=== PATIENT | female | born 1970 | race Caucasian/White ===

== ENCOUNTER 2020-03-27 09:25 | Observation (INO) ==
[2020-03-27] MEDS ORDERED: MoRPHine SULFATE 4 MG/ML 1 ML CARP\\VIAL IV STA (09:33)
[2020-03-27 09:47] LABS: Basophils # (auto) 0.02 K/uL (0-0.2); Basophils % (auto) 0.2 %; Eosinophils # (auto) 0.24 K/uL (0-0.5); Eosinophils % (auto) 2.6 %; Hematocrit (blood only) 37.5 % (37-47); Hemoglobin 12.5 g/dL (12.0-16.0); Immature Granulocytes # (auto) 0.03 K/uL (0.00-0.02); Immature Granulocytes % (auto) 0.3 %; Lymphocytes # (auto) 2.67 K/uL (1.2-3.4); Lymphocytes % (auto) 29.1 %; Mean Corpuscular Hemoglobin 31.9 pg (25-34); Mean Corpuscular Hgb Conc 33.3 g/dL (32-36); Mean Corpuscular Volume 95.7 fL (80-100); Mean Platelet Volume 9.8 fL (7.4-10.4); Monocytes # (auto) 0.81 K/uL (0.11-0.59); Monocytes % (auto) 8.8 %; Neutrophils # (auto) 5.41 K/uL (1.4-6.5); Platelet Count 290 K/uL (130-400); RDW Coefficient of Variation 13.6 % (11.5-14.5); Red Blood Count 3.92 M/uL (4.2-5.4); White Blood Count 9.18 K/uL (4.8-10.8)
--- NOTE | 2020-03-27 09:56 | XRay Report ---
XR tibia fibula LT 2V CLINICAL HISTORY: Acute fracture COMPARISON: None. DISCUSSION: No acute fractures of the proximal tibia or fibula are visualized. There is an oblique fr acture of the distal fibula. There is a fracture the posterior malleolus of the distal tibia. There i s disruption of the ankle mortise with posterior displacement of the talus with respect to the tibia. IMPRESSION: 1. Acute fractures of the distal fibula and posterior malleolus. 2. Tibiotalar subluxation. ACT 112: Negative or not required by law. Electronically signed by: Rod Rosado M.D. 03/27/2020 9:55 AM
--- NOTE | 2020-03-27 09:58 | XRay Report ---
XR ankle LT min 3V routine CLINICAL HISTORY: Open fracture. COMPARISON: None. DISCUSSION: There is gas within soft tissues consistent with a open fracture. There is a chip/avulsio n fracture the medial malleolus. There is a distal fibular fracture. There is a fracture of the poste rior malleolus of the distal tibia. There is a tibiotalar subluxation. IMPRESSION: 1. Trimalleolar fracture subluxation. 2. Gas within the soft tissues suggesting an open fracture. ACT 112: Negative or not required by law. Electronically signed by: Rod Rosado M.D. 03/27/2020 9:56 AM
[2020-03-27 10:02] LABS: BUN Creatinine Ratio 15.5 (10-20); Calcium 8.2 mg/dl (8.5-10.1); Creatinine Clr Calc Pharmacy 97.6 ml/min; Est GFR (African American) 98.8; Est GFR (Non-African American) 85.3; Potassium 3.4 mmol/L (3.5-5.1)
--- NOTE | 2020-03-27 10:08 | Emergency Department Note ---
History of Present Illness General Chief complaint: Ankle Pain Time Seen by Provider: 03/27/20 09:33 Source: patient Mode of arrival: ambulatory Limitations: no limitations History of Present Illness Provider Complaint: + extremity pain HPI Narrative: This is a 49-year-old female who presents to the ED with a chief complaint of a left distal leg injury. The patient states that she was getting out of her car to go eat at a local restaurant when she slipped and injured her left foot. She was transported to the ED by EMS. EMS gave the patient some IV fentanyl as well as 2 g of IV Ancef. They transported the patient here. The patient complains of left distal leg pain where there is also a large laceration on the medial aspect of the leg. Pain is worse with movement. Denies other symptoms at this time. Denies other injuries. Did not strike her head or lose consciousness. Home Medications Medication Instructions Recorded Confirmed Type No Known Home Medications 03/27/20 03/27/20 History Allergies Allergy/AdvReac Type Severity Reaction Status Date / Time No Known Allergies Allergy Unverified 03/27/20 10:06 Past Med/Surg History Social History Smoking Status: Never smoker Preferred Language: Kazakh Feels Safe at Home: Yes Review of Systems A total of 10 systems reviewed and were otherwise negative Physical Exam Vital Signs: Vital Signs - 24 hr 03/27/20 09:19 03/27/20 09:59 03/27/20 10:00 Temperature 37.1 C Temperature Source Oral Pulse Rate 51 L 59 L 48 L Pulse Rate from Sp O2 Sensor 59 L 56 L Respiratory Rate 17 18 16 Respiratory Effort / Characteristics Non-Labored Sponta neous Respiratory Depth Normal Respiratory Patter n Regular Blood Pressure 105/47 L 114/79 109/76 Blood Pressure Adrienne n 66 90 87 Blood Pressure Pos ition Lying Pulse Oximetry 98 96 94 Oxygen Delivery Me thod Room Air Sepsis Recent Feve r Within 48 Hours No Sepsis New/Unexpla ined Change in Men yuniel Status N/A Sepsis Action Take n by Nursing No Action Required 03/27/20 10:30 Temperature Temperature Source Pulse Rate 72 Pulse Rate from Sp O2 Sensor 72 Respiratory Rate 16 Respiratory Effort / Characteristics Respiratory Depth Respiratory Patter n Blood Pressure 131/88 Blood Pressure Adrienne n 102 Blood Pressure Pos ition Pulse Oximetry 98 Oxygen Delivery Me thod Sepsis Recent Feve r Within 48 Hours Sepsis New/Unexpla ined Change in Men yuniel Status Sepsis Action Take n by Nursing Physical Exam: CONSTITUTIONAL/VITAL SIGNS: Reviewed / noted above. GENERAL: Non-toxic in appearance. INTEGUMENTARY: Warm, dry, and [place]. HEAD: Normocephalic. EYES: without scleral icterus or trauma. ENT/OROPHARYNX: clear and moist. LYMPHADENOPATHY/NECK: Is supple without lymphadenopathy or meningismus. RESPIRATORY: Lungs clear and equal. CARDIOVASCULAR: Regular rate and rhythm. GI/ABDOMEN: Soft and nontender. No organomegaly or pulsatile mass. No rebound or guarding. Normal bowel sounds. EXTREMITIES: Warm and well perfused. Left leg reveals a 3 inch horizontal l aceration on the medial aspect just above the medial malleolus. Patient has significant tenderness in that area. There is also tissue swelling. BACK: No CVA tenderness. NEUROLOGICAL: Intact without focal deficits. PSYCHIATRIC: normal affect. MUSCULOSKELETAL: Normally developed with good muscle tone. TRIAGE NURSING DOCUMENTATION REVIEWED. Course Administered Medications Discontinued Medications Morphine Sulfate (Morphine Sulfate 4 Mg/Ml 1 Ml Carp\Vial) 4 mg IV NOW STA Stop: 03/27/20 09:34 Last Admin: 03/27/20 09:41 Dose: 4 mg Documented by: [id number] Medical Decision Making Differential Diagnosis Fracture, subluxation, dislocation, contusion, ligamentous injury, neurovascular, compartment syndrome, rhabdomyolysis, as well as other pathologies. Medical Records Attestation: I reviewed the patient's medical records. Home Medications Current Medication List: was personally reviewed by me Laboratory Data Attestation: I reviewed the patient's lab results. Result diagrams: 03/27/20 09:36 03/27/20 09:36 Lab Results 03/27/20 03/27/20 Range/Units 09:36 09:36 WBC 9.18 (4.8-10.8) K/uL RBC 3.92 L (4.2-5.4) M/uL Hgb 12.5 (12.0-16.0) g/dL Hct 37.5 (37-47) % MCV 95.7 (80-100) fL MCH 31.9 (25-34) pg MCHC 33.3 (32-36) g/dL RDW Std Deviation 47.0 H (36.4-46.3) fL RDW Coeff of Jessica 13.6 (11.5-14.5) % Plt Count 290 (130-400) K/uL MPV 9.8 (7.4-10.4) fL Immature Gran % (Auto) 0.3 % Neut % (Auto) 59.0 % Lymph % (Auto) 29.1 % [place] % (Auto) 8.8 % Eos % (Auto) 2.6 % Baso % (Auto) 0.2 % Neut # (Auto) 5.41 (1.4-6.5) K/uL Lymph # (Auto) 2.67 (1.2-3.4) K/uL [place] # (Auto) 0.81 H (0.11-0.59) K/uL Eos # (Auto) 0.24 (0-0.5) K/uL Baso # (Auto) 0.02 (0-0.2) K/uL Immature Gran # (Auto) 0.03 H (0.00-0.02) K/uL Sodium 143 (136-145) mmol/L Potassium 3.4 L (3.5-5.1) mmol/L Chloride 110 H (98-107) mmol/L Carbon Dioxide 26 (21-32) mmol/L Anion Gap 7.0 (3-11) BUN 13 (7-18) mg/dl Creatinine 0.81 (0.6-1.2) mg/dl Est Cr Clr Drug Dosing 97.6 ml/min Est GFR ( Amer) 98.8 Est GFR (Non-Af Amer) 85.3 BUN/Creatinine Ratio 15.5 (10-20) Glucose 113 H (70-99) mg/dl Calcium 8.2 L (8.5-10.1) mg/dl Imaging Data Radiologist's Impression: XR tibia fibula LT 2V CLINICAL HISTORY: Acute fracture COMPARISON: None. DISCUSSION: No acute fractures of the proximal tibia or fibula are visualized. There is an oblique fracture of the distal fibula. There is a fracture the posterior malleolus of the distal tibia. There is disruption of the ankle mortise with posterior displacement of the talus with respect to the tibia. IMPRESSION: 1. Acute fractures of the distal fibula and posterior malleolus. 2. Tibiotalar subluxation. MDM Narrative Patient presents with a left ankle injury. She has acute fractures that are open of the distal fibula and posterior malleolus as well as tibiotalar subluxation. She was given IV Ancef by EMS. She was given IV morphine here. The patient last ate last night. She did not eat or drink this morning. Orthopedics, Dr. Sales, has been consulted to see the patient. The patient has blood work was normal. Dr. Sales did ask if I could try to reduce the patient subluxation. The patient did receive IV morphine here. I did attempt to reduction but there was no clear reduction felt although there was some movement of the foot on the ankle. Sterile moist dressings were placed over the patient's wound. Impression & Plan Ankle fracture Discharge Plan Visit Data Chief Complaint: Ankle Pain ED Provider: Ed Hicks Discharge Problem: Ankle fracture Patient Disposition: Being Evaluated by Surgeon Forms Stand Alone Forms: [facility] [employer] Prescriptions Prescriptions: No Action No Known Home Medications RF: 0 Referrals Referrals: PCP,NO [Primary Care Provider] - Discharge Problem: Ankle fracture Qualifiers: Encounter type: initial encounter Fracture type: open Open fracture type: open type I or II Laterality: left Qualified Code(s): S82.892B - Other fracture of left lower leg, initial encounter for open fracture type I or II
[2020-03-27] MEDS ORDERED: MIDAZOLAM HCL 1 MG/ML 2ML VIAL ONE (11:22)
[2020-03-27] MEDS ORDERED: fentaNYL citrate 100 MCG/2 ML VIAL ONE (11:22)
[2020-03-27 11:44] LABS: Pregnancy Test, Serum Negative (Negative)
--- NOTE | 2020-03-27 12:20 | Anesthesiology Consultation ---
Date of Service March 27, 2020 Assessment & Plan (1) Encounter for pre-operative examination: Chart Review Chart Review: Acceptable Risk for Surgery History Surgery Operation Date: 03/27/20 12:15 Proposed Procedures p Open Reduction Internal Fixation Ankle - Danilo Sales DO Height/Weight Height: 5 ft 5 in Weight: 98.4 kg Allergies Allergy/AdvReac Type Severity Reaction Status Date / Time No Known Allergies Allergy Unverified 03/27/20 10:06 Medications Home Medications Medication Instructions Recorded Confirmed Last Taken No Known Home Medications 03/27/20 03/27/20 Unknown NPO Date Last Intake of Fluids: 03/26/20 Time Last Intake of Fluids: 18:00 Date Last Intake of Solids: 03/26/20 Time Last Intake of Solids: 18:00 Past Medical History Medical History (Updated 03/27/20 @ 12:19 by Jose Aguirre MD) Obesity Past Surgical History Surgical History (Updated 03/27/20 @ 12:19 by Jose Aguirre MD) No significant past surgical history Social History Smoking Status: Never smoker Physical Exam Vital Signs Last Vital Signs Temp 37.1 C 03/27/20 09:19 Pulse 72 03/27/20 10:30 Resp 16 03/27/20 10:30 BP 131/88 03/27/20 10:30 Pulse Ox 98 03/27/20 10:30 Testing Laboratory Results 03/27/20 09:36 03/27/20 09:36
[2020-03-27] MEDS ORDERED: ROPIVACAINE 0.5% 5 MG/ML 30 ML VIAL ONE (12:31)
[2020-03-27] MEDS ORDERED: SODIUM CHLORIDE 0.9% INJ 10 ML VIAL ONE (12:31)
[2020-03-27] MEDS ORDERED: PROMETHAZINE HCL 12.5 MG in SODIUM CHLORIDE 0.9% 50 ML IV PRN (12:33)
[2020-03-27] MEDS ORDERED: LABETALOL HCL IV 5 MG/ML 20ML IV PRN (12:33)
[2020-03-27] MEDS ORDERED: HYDROmorphone INJ 1 MG/ML SYRINGE IV PRN (12:33)
[2020-03-27] MEDS ORDERED: ONDANSETRON INJ 2 MG/ML 2 ML VIAL IV PRN ×2 (12:33→16:31)
[2020-03-27] MEDS ORDERED: ATROPINE SULFATE 0.1 MG/ML 10ML SYR IV PRN (12:33)
[2020-03-27] MEDS ORDERED: KETOROLAC 30 MG/ML VIAL IV PRN (12:33)
--- NOTE | 2020-03-27 12:47 | History & Physical Bridge Note ---
Date of Service March 27, 2020 History & Physical Bridge Note I have examined the patient, reviewed the History & Physical and in the interval since the performance of the History & Physical I have noted the following changes of clinical significance: We will require open reduction internal fixation open and displaced left ankle trimalleolar fracture dislocation with irrigation debridement open fracture left ankle.
[2020-03-27 12:54] LABS: Pregnancy Test, Urine Negative (Negative)
--- NOTE | 2020-03-27 13:11 | History & Physical Report ---
Date of Service March 27, 2020 Assessment & Plan (1) Ankle fracture: Patient has sustained an open ankle fracture and dislocation. Treatment options discussed. Images reviewed with Dr. Sales. Patient will require I&D of open fracture and ORIF. All potential risks, benefits, and alternatives to surgery discussed with patient by Dr. Sales and she wishes to proceed. All questions answered. Will plan on surgical treatment today. Encounter type: initial encounter Fracture type: open Laterality: left Open fracture type: open type I or II Qualified Code(s): S82.892B - Other fracture of left lower leg, initial encounter for open fracture type I or II History of Present Illness Chief Complaint: Left ankle injury Primary Care Provider: NO PCP 49 year old female with no significant past medical history presented to ED by ambulance this morning. She was getting out of her car and slipped twisting her ankle. She has sustained an open ankle fracture/dislocation. She is being brought to the OR for definitive treatment. Patient denies headaches, sweats, fevers, chills, double vision, blurred vision, cough, sore throat, dysphagia, chest pain, sob, wheezing, n/v/d/c, numbness, tingling, fatigue, urinary symptoms, mood disorders. ROS positive for left ankle pain. Allergies Allergy/AdvReac Type Severity Reaction Status Date / Time No Known Allergies Allergy Unverified 03/27/20 10:06 Home Medications Medication Instructions Recorded Confirmed Type No Known Home Medications 03/27/20 03/27/20 History Past Med/Surg History Medical History (Updated 03/27/20 @ 12:19 by Jose Aguirre MD) Obesity Surgical History (Updated 03/27/20 @ 12:19 by Jose Aguirre MD) No significant past surgical history Social History Smoking Status: Never smoker Preferred Language: German Feels Safe at Home: Yes Physical Exam Constitutional: well developed and well nourished; no acute distress Eyes: PERRL, conjunctivae normal, anicteric sclerae ENMT: external ear and nose normal, oropharynx normal Neck: normal visual inspection Respiratory: normal respiratory effort; no respiratory distress Cardiovascular: Rate/Rhythm: regular rate and regular rhythm Musculoskeletal: Left ankle is externally rotated. She has at lease a 6cm laceration medial aspect of ankle. Tenderness diffusely about the ankle. Toes are mobile and cap refill <3s. She has sensation distally. Dorsal pedal pulse palpable. N/v status intact. Skin: no rashes, warm and dry Neurologic: normal touch/pain/proprioception Psychiatric: A+Ox3, euthymic affect Results & Data ([facility]) Vital Signs (Past 12 Hours) Vital Signs Temp Pulse Resp BP Pulse Ox 03/27/20 12:30 78 15 121/84 96 03/27/20 11:30 74 23 129/86 97 03/27/20 11:00 75 18 129/88 97 03/27/20 10:30 72 16 131/88 98 03/27/20 10:00 48 L 16 109/76 94 03/27/20 09:59 59 L 18 114/79 96 03/27/20 09:19 37.1 C 51 L 17 105/47 L 98 Diagnostic Findings XR ankle LT min 3V routine CLINICAL HISTORY: Open fracture. COMPARISON: None. DISCUSSION: There is gas within soft tissues consistent with a open fracture. There is a chip/avulsion fracture the medial malleolus. There is a distal fibular fracture. There is a fracture of the posterior malleolus of the distal tibia. There is a tibiotalar subluxation. IMPRESSION: 1. Trimalleolar fracture subluxation. 2. Gas within the soft tissues suggesting an open fracture.
[2020-03-27] MEDS ORDERED: ONDANSETRON INJ 2 MG/ML 2 ML VIAL ONE (13:46)
[2020-03-27] MEDS ORDERED: PROPOFOL IV EMULSION 10 MG/ML 20 ML VIAL IV ONE (13:46)
[2020-03-27] MEDS ORDERED: LIDOCAINE HCL 2% 2 ML VIAL/AMP(20MG/ML) INFIL ONE (13:46)
[2020-03-27] MEDS ORDERED: ROCURONIUM BROMIDE 10 MG/ML 5 ML VIAL IV ONE (13:46)
[2020-03-27] MEDS ORDERED: LARYING-O-JET KIT (LTA) ONE (13:46)
[2020-03-27] MEDS ORDERED: DEXAMETHASONE SOD INJ 4 MG/ML VIAL ONE (13:46)
[2020-03-27] MEDS ORDERED: BACITRACIN INJ 50,000 UNIT VIAL ONE (13:57)
--- NOTE | 2020-03-27 15:21 | Fluoroscopy Report ---
FL ankle LT min 3V RTN CLINICAL HISTORY: ORIF LEFT ANKLE COMPARISON STUDY: March 27, 2020 FLUOROSCOPY TIME: 72 seconds. NUMBER OF FLUOROSCOPIC IMAGES: 2 FINDINGS: 2 intraoperative fluoroscopic spot images are provided for interpretation. There are 2 kevin ulated screws traversing a fracture of the posterior malleolus of the distal tibia. There is a latera l metallic plate fixating a distal humeral fracture. The ankle mortise appears intact. There is a chi p/avulsion fracture the medial malleolus. IMPRESSION: Internally fixated fractures of the distal tibia and fibula. ACT 112: Negative or not required by law. Electronically signed by: Rod Rosado M.D. 03/27/2020 3:20 PM
[2020-03-27] MEDS ORDERED: METOCLOPRAMIDE HCL INJ 5 MG/ML 2 ML VIAL ONE (15:35)
--- NOTE | 2020-03-27 15:38 | Post Operative Brief Note ---
Immediate Post Op Note v1 Date of Surgery March 27, 2020 Pre & Post Diagnosis Operation Date: 03/27/20 12:15 Pre-Op Diagnosis: Acute open trimalleolar fracture dislocation left tibia and fibula. 8 cm open fracture laceration medial ankle Post-Op Diagnosis: Acute open trimalleolar fracture dislocation left tibia and fibula. 8 cm open fracture laceration medial ankle I identified the patient and participated in the time-out.: Yes Procedure Operation Date: 03/27/20 12:15 Actual Procedures p 1. Open reduction internal fixation open and displaced left ankle trimalleolar fracture dislocation. 2. Irrigation and debridement open fracture dislocation left ankle. 3. Irrigation, debridement and closure 8 cm open fracture laceration medial ankle 4. Fluoroscopic stress views left ankle. (Left) - Danilo Sales DO Surgeon Danilo Sales DO Sewer Line Repairer Chet Andrade PA-C Estimated Blood Loss 10 Findings Consistent with Post-Op Diagnosis Specimens None Anesthesia Type General Regional Complications none Disposition Accompanied Patient To Recovery: No Disposition: Recovery Room
--- NOTE | 2020-03-27 16:19 | Anesthesiology Progress Note ---
Date of Service March 27, 2020 Anesthesia Post Procedure Vital Signs Vital Signs: Temp Pulse Pulse Resp BP BP Pulse Ox 03/27/20 16:10 91 H 20 133/74 94 03/27/20 16:00 80 17 120/81 95 03/27/20 15:50 82 17 126/78 100 03/27/20 15:41 36.4 C L 88 16 118/73 100 03/27/20 12:30 78 15 121/84 96 03/27/20 11:30 74 23 129/86 97 03/27/20 11:00 75 18 129/88 97 03/27/20 10:30 72 16 131/88 98 03/27/20 10:00 48 L 16 109/76 94 03/27/20 09:59 59 L 18 114/79 96 03/27/20 09:19 37.1 C 51 L 17 105/47 L 98 Transfer of Care Handoff Completed per policy Notes Mental Status: alert / awake / arousable Patient Amnestic to Procedure: Yes Nausea / Vomiting: adequately controlled Pain: adequately controlled Airway Patency, RR, SpO2: stable & adequate BP & HR: stable & adequate Hydration State: stable & adequate Anesthetic Complications: no major complications apparent
[2020-03-27] MEDS ORDERED: bisacodyL 10 MG SUPP PR PRN (16:31)
[2020-03-27] MEDS ORDERED: MAGNESIUM HYDROXIDE SUSP 30 ML UDC PO PRN (16:31)
[2020-03-27] MEDS ORDERED: oxyCODONE HCL IR 5 MG TAB (IMMEDIATE RELEASE) PO PRN (16:31)
[2020-03-27] MEDS ORDERED: METOCLOPRAMIDE HCL INJ 5 MG/ML 2 ML VIAL IV PRN (16:31)
[2020-03-27] MEDS ORDERED: HYDROmorphone INJ 0.5 MG/0.5 ML SYR IV PRN (16:31)
[2020-03-27] MEDS ORDERED: NALOXONE HCL 0.4 MG/1 ML VIAL/CARP IV PRN (16:31)
[2020-03-27] MEDS: SODIUM CHLORIDE 0.9% 1000ML 1,000 ML IV SCH (17:43)
[2020-03-27] MEDS: ceFAZolin 2000MG 2,000 MG/15 ML SYR IV SCH (19:56)
--- NOTE | 2020-03-27 20:00 | Operative Report (OR) ---
DATE OF OPERATION: 03/27/2020 PREOPERATIVE DIAGNOSES: 1. Left acute open trimalleolar fracture dislocation of the tibia and fibula. 2. An 8 cm open fracture laceration, medial ankle. POSTOPERATIVE DIAGNOSES: 1. Left acute open trimalleolar fracture dislocation of the tibia and fibula. 2. An 8 cm open fracture laceration, medial ankle. PROCEDURES PERFORMED: 1. Open reduction and internal fixation of open and displaced left ankle trimalleolar fracture dislocation. 2. Irrigation and debridement of open fracture dislocation, left ankle. 3. Irrigation and debridement with closure of an 8 cm open fracture laceration, medial ankle. 4. Fluoroscopic stress views of the left ankle. SURGEON: Danilo Sales DO. HANDSTITCHING MACHINE ARMHOLE FELLER: Chet Andrade PA-C who was present for patient positioning, sterile prep and drape, management of retractors and instruments. He was present through the critical portions of the case including wound closure, application of sterile dressing and transport of the patient to recovery. ANESTHESIA: General, regional. SPECIMENS: None. DRAINS: None. COMPLICATIONS: None. BLOOD LOSS: 10 mL. PERTINENT HISTORY: This is a 49-year-old woman who is visiting her daughters at [facility]. She had a twisting injury to her left ankle. She had severe pain and inability to ambulate with an obvious large fracture laceration of the medial ankle with bone protruding from the ankle. She was transported to [facility] where she was evaluated and treated by the ER staff noting open fracture dislocation of the left ankle. The patient had irrigation, IV antibiotics and was immobilized and then orthopedics was consulted. The patient was seen and examined and then scheduled for surgery immediately as indicated. All potential risks, benefits, complications, alternatives, rehab potential for incomplete relief of symptoms, need for further surgery, DVT, PE, , persistent pain, swelling, scarring, weakness, neurovascular injury, wound complications, hardware failure, nonunion, malunion, bone fracture, osteomyelitis and other complications related to the open fracture were discussed with the patient. The patient decided to proceed with the procedure as indicated. She understands the higher risk of any procedures performed on the ankle due to the open fracture. DESCRIPTION OF PROCEDURE: The patient received regional anesthetic performed by the anesthesiologist and taken to the operative suite, placed supine on the operating room table. After review of consent and identification of proper operative site, the patient was anesthetized, LMA was placed. Tourniquet was placed high on left thigh over cast padding. Left lower extremity was then sterilely prepped and draped in usual fashion, elevated and tourniquet inflated to 350 mmHg. There was no exsanguination performed. Next, the surgical timeout was performed and the medial 8 cm fracture laceration was then explored and Franco rakes were applied. Devitalized periosteal tissue was then sharply excised with a 15 blade scalpel and Metzenbaum scissors. Macerated subcutaneous tissue was sharply excised with Metzenbaum scissors and forceps. Next, after all obviously devitalized tissue was then sharply excised, the posterior tibial tendon was clearly visualized as well as the open bone fracture. There is a small avulsion fracture lodged within the medial deltoid. Decision was made to maintain this in place, therefore, to avoid disturbing any more of the soft tissue due to trauma as was possible. Next, 6 liters of sterile saline with bacitracin was then used to cleanse the laceration with pulsatile lavage until clear. Once this was completed, new top gloves and top sheet were then applied and attention was then directed toward the fracture dislocation. Dislocation was then gently reduced with gentle traction under live fluoroscopic assistance. After this was completed, next, a 15 blade scalpel was used to make an incision centered over the lateral malleolus extending proximally. The incision was deepened through the skin and subcutaneous tissue with a 15 blade scalpel. Franco rakes were applied to retract soft tissue carefully and then the torn periosteum and fracture were clearly identified. Careful dissection was performed with a 15 blade scalpel and forceps to elevate the periosteum from within the fracture site. The torn periosteum was sharply excised in a judicious fashion. Next, a minimalist elevation of periosteum was performed with a 15 blade scalpel and then after irrigation with sterile saline and debridement with a small dental pick to remove clot, the fracture was then reduced in an anatomic reduction with 2 lion-jaw forceps. A single 3.5 mm anterior to posterior lag screw was placed under live fluoroscopic assistance followed by use of a contoured Synthes 1/3 tubular locking plate, which was then firmly affixed to the lateral malleolus using multiple locking bone screws. Next, 2 small stab incisions were made in the distal anterior aspect of the tibia and two 4-0 cannulated screws were placed under live fluoroscopic assistance with the foot held in full dorsiflexion to capture the posterior malleolar fragment. Once the fragment was then firmly stabilized, the guide pins were removed and stress views were then performed of the ankle joint under live fluoroscopic assistance, multiple views, noting stable ankle joint mortise. Decision was made to avoid use of a syndesmotic screw based upon stress views. Next, the surgical incision and the open fracture laceration of the medial ankle was then irrigated once again with sterile saline with bacitracin and then the lateral deep soft tissue was closed using 2-0 Vicryl over the plate. Next, the dermis was closed using buried interrupted 3-0 Vicryl, skin was closed with 4-0 nylon. The anterior stab incisions were closed using 4-0 nylon and then the deep periosteal tear was then closed with interrupted 2-0 Vicryl sutures using few sutures followed by gentle reapproximation of the dermis with buried interrupted 3-0 Vicryl and then the skin was closed using 4-0 nylon. After final radiographs have been performed, a sterile compressive dressing and bulky Donis Bowens plaster splint was applied overwrapped with an Merritt wrap with the foot held in neutral dorsiflexion. Tourniquet was released. Normal hyperemic response returned to the toes. The patient was awakened and taken to recovery in stable condition. I attest to the content of the Intraoperative Record and any orders documented therein. Any exception s are noted below.
[2020-03-27] MEDS: DOCUSATE SODIUM 100 MG CAP PO SCH ×2 (20:06→20:07)
[2020-03-27] MEDS: ASPIRIN 81 MG ECTAB PO SCH (20:06)
[2020-03-27] MEDS ORDERED: SENNA 8.6 MG TAB PO SCH (21:00)
[2020-03-27] MEDS: ACETAMINOPHEN 500 MG TAB PO SCH (21:19)
[2020-03-28] MEDS: ceFAZolin 2000MG 2,000 MG/15 ML SYR IV SCH ×2 (03:28→12:19)
[2020-03-28] MEDS: SODIUM CHLORIDE 0.9% 1000ML 1,000 ML IV SCH (03:38)
[2020-03-28 05:40] LABS: Hematocrit (blood only) 36.4 % (37-47); Hemoglobin 12.1 g/dL (12.0-16.0); Mean Corpuscular Hemoglobin 31.4 pg (25-34); Mean Corpuscular Hgb Conc 33.2 g/dL (32-36); Mean Corpuscular Volume 94.5 fL (80-100); Mean Platelet Volume 9.9 fL (7.4-10.4); Platelet Count 257 K/uL (130-400); RDW Coefficient of Variation 13.8 % (11.5-14.5); RDW Standard Deviation 47.8 fL (36.4-46.3); Red Blood Count 3.85 M/uL (4.2-5.4); White Blood Count 16.69 K/uL (4.8-10.8)
[2020-03-28 05:59] LABS: BUN Creatinine Ratio 12.5 (10-20); Calcium 8.2 mg/dl (8.5-10.1); Creatinine Clr Calc Pharmacy 129.6 ml/min; Est GFR (African American) 123.4; Est GFR (Non-African American) 106.5
[2020-03-28] MEDS: ACETAMINOPHEN 500 MG TAB PO SCH (05:59)
[2020-03-28] MEDS: ASPIRIN 81 MG ECTAB PO SCH (08:19)
[2020-03-28] MEDS: DOCUSATE SODIUM 100 MG CAP PO SCH (08:20)
[2020-03-28] MEDS ORDERED: MULTIVITAMIN TAB PO SCH (09:00)
--- NOTE | 2020-03-28 09:56 | Orthopedic Progress Note ---
Date of Service March 28, 2020 Assessment & Plan (1) Ankle fracture: POD#1 ORIF and I&D left ankle open trimalleolar fracture -Pain management -PT/OT-NWB left LE -DVT prophylaxis-ASA 81mg BID, SCDs -D/C planning-plan to discharge home possibly later today if does fine with therapy. Will hold discharge until on IV antibiotics for 24 hours. Will likely plan in 2 weeks of PO antibiotics post discharge. Patient is from [place]. She will possibly follow up with orthopedist local to her, otherwise will have her follow up with Dr. Sales 12-14 days post operatively. Admission and Anticipated Discharge Date Admission Date: March 27, 2020 Subjective Patient doing well this morning. Some discomfort medially. This was in the region of her laceration. Pain controlled. No other complaints. denies chest pain, sob, dizziness, n/v/d. Review of Systems Constitutional: as per Subjective / HPI Physical Exam Physical Exam: Splint to LLE is c/d/i. Toes mobile. Sensation intact. Distally n/v status intact. No calf tenderness. Constitutional: well developed and well nourished; no acute distress Results & Data ([facility]) Vital Signs (Past 12 Hours) Vital Signs Temp Pulse Resp BP Pulse Ox 03/28/20 08:17 37.0 C 85 17 115/76 95 03/28/20 03:28 36.9 C 87 16 120/72 93 03/27/20 22:42 37.2 C 90 16 106/67 91 Laboratory Results H & H 03/27/20 03/28/20 Range/Units 09:36 05:15 Hgb 12.5 12.1 (12.0-16.0) g/dL Hct 37.5 36.4 L (37-47) % (1) Ankle fracture Encounter type: initial encounter Fracture type: open Laterality: left Open fracture type: open type I or II Qualified Code(s): S82.892B - Other fracture of left lower leg, initial encounter for open fracture type I or II
--- NOTE | 2020-03-28 14:34 | Discharge Summary ---
Date of Service March 28, 2020 Admission HPI Per Admitting Provider 49 year old female with no significant past medical history presented to ED by ambulance this morning. She was getting out of her car and slipped twisting her ankle. She has sustained an open ankle fracture/dislocation. She is being brought to the OR for definitive treatment. Patient denies headaches, sweats, fevers, chills, double vision, blurred vision, cough, sore throat, dysphagia, chest pain, sob, wheezing, n/v/d/c, numbness, tingling, fatigue, urinary symptoms, mood disorders. ROS positive for left ankle pain. Admission Exam Per Admitting Provider Constitutional: well developed and well nourished; no acute distress Eyes: PERRL, conjunctivae normal, anicteric sclerae ENMT: external ear and nose normal, oropharynx normal Neck: normal visual inspection Respiratory: normal respiratory effort; no respiratory distress Cardiovascular: Rate/Rhythm: regular rate and regular rhythm Musculoskeletal: Left ankle is externally rotated. She has at lease a 6cm laceration medial aspect of ankle. Tenderness diffusely about the ankle. Toes are mobile and cap refill <3s. She has sensation distally. Dorsal pedal pulse palpable. N/v status intact. Skin: no rashes, warm and dry Neurologic: normal touch/pain/proprioception Psychiatric: A+Ox3, euthymic affect Principal Diagnosis Left ankle open trimalleolar fracture and dislocation Discharge Exam Constitutional well developed and well nourished; no acute distress Eyes PERRL, conjunctivae normal, anicteric sclerae ENMT external ear and nose normal, oropharynx normal Neck normal visual inspection Respiratory normal respiratory effort; no respiratory distress Cardiovascular Rate/Rhythm: regular rate and regular rhythm Skin no rashes, warm and dry Neurologic normal touch/pain/proprioception Psychiatric A+Ox3, euthymic affect Discharge Data Allergies Allergy/AdvReac Type Severity Reaction Status Date / Time No Known Allergies Allergy Unverified 03/27/20 10:06 Consultations 03/27/20 16:31 Consult Case Management - Discharge Planning Routine 03/28/20 12:13 Burn CD for patient Routine 03/28/20 12:16 Burn CD for patient Routine Procedures Performed Operation Date: 03/27/20 12:15 Actual Procedures p Open reduction internal fixation open and displaced left ankle trimalleolar fracture dislocation with irrigation and debridement (Left) - Danilo Sales, Ordered Studies 03/27/20 11:13 US - OR guided needle placemen Routine 03/27/20 12:35 FL ankle LT min 3V RTN Routine FL fluoroscopy <1hr Routine Hospital Course (1) Ankle fracture: Patient presented to the emergency department by ambulance on 03/27/20 after slip and fall. She was found to have an open ankle fracture and dislocation. She was given dose of cefazolin IV in the ambulance and again preoperatively. She was brought to the operating room for emergent I&D and ORIF. The procedure was well tolerated. She had an uneventful post operative course. On POD#1 she was evaluated by PT and OT. Labs remained stable. Pain was well controlled. We continued Cefazolin IV x 24 hours. On 03/28/20 patient was felt to be stable for discharge home after completing her antibiotics. Will plan on continuing oral antibiotics for 2 weeks. Patient is from out [facility]. She is planning on following up with home orthopedist. POD#1 ORIF and I&D left ankle open trimalleolar fracture -Pain management -PT/OT-NWB left LE -DVT prophylaxis-ASA 81mg BID, SCDs -D/C planning-plan to discharge home possibly later today if does fine with therapy. Will hold discharge until on IV antibiotics for 24 hours. Will likely plan in 2 weeks of PO antibiotics post discharge. Patient is from [place]. She will possibly follow up with orthopedist local to her, otherwise will have her follow up with Dr. Sales 12-14 days post operatively. Lab Results 03/27/20 03/27/20 03/27/20 Range/Units 09:36 09:36 09:36 WBC 9.18 (4.8-10.8) K/uL RBC 3.92 L (4.2-5.4) M/uL Hgb 12.5 (12.0-16.0) g/dL Hct 37.5 (37-47) % MCV 95.7 (80-100) fL MCH 31.9 (25-34) pg MCHC 33.3 (32-36) g/dL RDW Std Deviation 47.0 H (36.4-46.3) fL RDW Coeff of Jessica 13.6 (11.5-14.5) % Plt Count 290 (130-400) K/uL MPV 9.8 (7.4-10.4) fL Immature Gran % (Auto) 0.3 % Neut % (Auto) 59.0 % Lymph % (Auto) 29.1 % Eaton % (Auto) 8.8 % Eos % (Auto) 2.6 % Baso % (Auto) 0.2 % Neut # (Auto) 5.41 (1.4-6.5) K/uL Lymph # (Auto) 2.67 (1.2-3.4) K/uL Eaton # (Auto) 0.81 H (0.11-0.59) K/uL Eos # (Auto) 0.24 (0-0.5) K/uL Baso # (Auto) 0.02 (0-0.2) K/uL Immature Gran # (Auto) 0.03 H (0.00-0.02) K/uL Sodium 143 (136-145) mmol/L Potassium 3.4 L (3.5-5.1) mmol/L Chloride 110 H (98-107) mmol/L Carbon Dioxide 26 (21-32) mmol/L Anion Gap 7.0 (3-11) BUN 13 (7-18) mg/dl Creatinine 0.81 (0.6-1.2) mg/dl Est Cr Clr Drug Dosing 97.6 ml/min Est GFR ( Amer) 98.8 Est GFR (Non-Af Amer) 85.3 BUN/Creatinine Ratio 15.5 (10-20) Glucose 113 H (70-99) mg/dl Calcium 8.2 L (8.5-10.1) mg/dl HCG, Qual Negative (Negative) Urine Test (Negative) COVID-19 Eval Order SARS-CoV-2, RNA, NAAT (NEGATIVE) 03/27/20 03/27/20 03/27/20 Range/Units 12:05 Unknown Unknown WBC (4.8-10.8) K/uL RBC (4.2-5.4) M/uL Hgb (12.0-16.0) g/dL Hct (37-47) % MCV (80-100) fL MCH (25-34) pg MCHC (32-36) g/dL RDW Std Deviation (36.4-46.3) fL RDW Coeff of Jessica (11.5-14.5) % Plt Count (130-400) K/uL MPV (7.4-10.4) fL Immature Gran % (Auto) % Neut % (Auto) % Lymph % (Auto) % Eaton % (Auto) % Eos % (Auto) % Baso % (Auto) % Neut # (Auto) (1.4-6.5) K/uL Lymph # (Auto) (1.2-3.4) K/uL Eaton # (Auto) (0.11-0.59) K/uL Eos # (Auto) (0-0.5) K/uL Baso # (Auto) (0-0.2) K/uL Immature Gran # (Auto) (0.00-0.02) K/uL Sodium (136-145) mmol/L Potassium (3.5-5.1) mmol/L Chloride (98-107) mmol/L Carbon Dioxide (21-32) mmol/L Anion Gap (3-11) BUN (7-18) mg/dl Creatinine (0.6-1.2) mg/dl Est Cr Clr Drug Dosing ml/min Est GFR ( Amer) Est GFR (Non-Af Amer) BUN/Creatinine Ratio (10-20) Glucose (70-99) mg/dl Calcium (8.5-10.1) mg/dl HCG, Qual (Negative) Urine Test Negative (Negative) COVID-19 Eval Order Covid19 [facility] SARS-CoV-2, RNA, NAAT NEGATIVE (NEGATIVE) 03/28/20 03/28/20 Range/Units 05:15 05:15 WBC 16.69 H (4.8-10.8) K/uL RBC 3.85 L (4.2-5.4) M/uL Hgb 12.1 (12.0-16.0) g/dL Hct 36.4 L (37-47) % MCV 94.5 (80-100) fL MCH 31.4 (25-34) pg MCHC 33.2 (32-36) g/dL RDW Std Deviation 47.8 H (36.4-46.3) fL RDW Coeff of Jessica 13.8 (11.5-14.5) % Plt Count 257 (130-400) K/uL MPV 9.9 (7.4-10.4) fL Immature Gran % (Auto) % Neut % (Auto) % Lymph % (Auto) % Eaton % (Auto) % Eos % (Auto) % Baso % (Auto) % Neut # (Auto) (1.4-6.5) K/uL Lymph # (Auto) (1.2-3.4) K/uL Eaton # (Auto) (0.11-0.59) K/uL Eos # (Auto) (0-0.5) K/uL Baso # (Auto) (0-0.2) K/uL Immature Gran # (Auto) (0.00-0.02) K/uL Sodium 141 (136-145) mmol/L Potassium 4.0 D (3.5-5.1) mmol/L Chloride 110 H (98-107) mmol/L Carbon Dioxide 26 (21-32) mmol/L Anion Gap 5.0 (3-11) BUN 8 D (7-18) mg/dl Creatinine 0.61 (0.6-1.2) mg/dl Est Cr Clr Drug Dosing 129.6 ml/min Est GFR ( Amer) 123.4 Est GFR (Non-Af Amer) 106.5 BUN/Creatinine Ratio 12.5 (10-20) Glucose 111 H (70-99) mg/dl Calcium 8.2 L (8.5-10.1) mg/dl HCG, Qual (Negative) Urine Test (Negative) COVID-19 Eval Order SARS-CoV-2, RNA, NAAT (NEGATIVE) Total Time Total Time Spent Total Time Spent (In Minutes): 20 Discharge Plan Discharge Items Patient Disposition: Home - Self-Care Reason For Visit: POST OP, OPEN ANKLE FRACTURE/DISLOCATION Discharge Diagnosis: Left open ankle fracture/dislocation Activity: Per Instructions section Weightbearing: Left non-weightbearing Non-emergency contact: Surgeon Call non-emergency contact if: your pain is not controlled, your temperature is above 101.5, your wound has increased redness and your wound has increased drainage Follow-up/Referrals: PCP,NO [Primary Care Provider] - Diet: Regular Addtl Attending Provider Instructions: ACTIVITY RECOMMENDATIONS: * You must be Nonweightbearing on your left foot. Use crutches/walker/knee scooter for ambulation SPECIAL CARE INSTRUCTIONS: * Some drainage onto the dressing is normal and is no cause for alarm. * Some swelling is natural especially after walking. When resting, keep your foot elevated above the level of your heart. * Call the doctor's office at if you notice increased drainage, fever over 101 degrees F. or severe constant pain. BANDAGE: * Leave bandage/cast in place unless otherwise directed. * Keep bandage/cast dry at all times. FOLLOW UP VISIT: If appointment is not already scheduled: Please call [facility] [place] to make a follow-up appointment after your surgery at . Stand-Alone Forms: My [facility] [place], Opioid Pain Management, Smoking Cessation Medications and DC Order Prescriptions: New aspirin 81 mg Tablet,Delayed Release (Dr/Ec) 81 mg PO BID 30 Days Qty: 60 RF: 0 acetaminophen 500 mg Tablet 1,000 mg PO Q8 7 Days Qty: 42 RF: 0 oxycodone 5 mg Tablet 5 mg PO Q4H MDD 6 PRN (Reason: pain) Qty: 30 RF: 0 cephalexin 500 mg capsule 500 mg PO QID 14 Days Qty: 56 RF: 0 Discharge Orders: Discharge Order (Routine); Ordered 03/28/20 Ordered By: Francisco Lyle Admission Data Admit Date/Time: 03/27/20 15:48 Attending Provider: Danilo Sales Admit Provider: Danilo Sales Primary Care Provider: PCP,NO Other Interventions: Discharge Summary Assessment (RN) Last Done: 03/28/20 12:38
== END 2020-03-28 14:03 | disposition home or self-care (01) ==
LOC: ED 09:25 → OR 12:50 → 3E 12:50